=== PATIENT | female | born 1980 | race Caucasian/White ===

== ENCOUNTER 2016-05-17 04:02 | Emergency (ER) | payer OTHER ==
[~2016-05-17] VITALS: Ht 165.1 cm; Wt 107.6 kg
[~2016-05-17 04:02] MED LIST: AMPH10TA2 PO; CALCTAB5 PO; CHOL100010 PO; CLON0.5T3 PO; HYDR200T5 PO; MAGN400T6 PO; OMEG10007 PO; OXCA150T2 PO; OXYC1TAB3 PO; OXYC60TA8 PO; PANT20TA PO; POLY335040 PO; PREG1CAP34 PO; SENN1TAB77 PO; SPIR25TA PO; TRAZ100T29 PO; ZOLP10TA PO
[2016-05-17 04:11] VITALS: TEMP 37.2; Ht 165.1 cm; Wt 107.6 kg
[2016-05-17] MEDS ORDERED: SODIUM CHLORIDE 0.9% 1000ML 1,000 ML IV STA (04:24)
[2016-05-17] MEDS ORDERED: KETOROLAC TROMETHAMINE 30 MG/ML VIAL IV STA (04:24)
[2016-05-17] MEDS ORDERED: ALBUT/IPRATROP 3MG/0.5MG NEB 3 ML VIAL INH STA (04:24)
--- NOTE | 2016-05-17 04:39 | EMERGENCY ROOM VISIT NOTE ---
History Report prepared by Chester: Thomas Butler Under the Supervision of: Dr. Panchito Villar M.D. First contact with patient: 04:16 Chief Complaint: FLU LIKE SX Stated Complaint: FLU History of Present Illness The patient is a 35 year old female who presents to the Emergency Room with complaints of flu-like symptoms that began on Thursday of this week, 3 days prior to arrival. The patient is currently complaining of a "heaviness" in her lungs. She states that this symptom is worsening and hindering her sleep. She also complains of fevers, chills, sore throat, and body aches. She denies any history of asthma. 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 A total of 10 systems reviewed and were otherwise negative. Past Medical & Surgical Medical Problems: (1) Chronic pelvic pain of female (2) Depression (3) Fibromyalgia (4) Seizure disorder Family History Diabetes mellitus Social History Smoking Status: Never Smoker Marital Status: single Housing Status: lives with family Occupation Status: [employer] student Current/Historical Medications Scheduled Calcium Carbonate (Calcium 600), 600 MG PO BID Cholecalciferol (Vitamin D3), 1,000 UNIT PO DAILY Fish Oil ([place]-3), 1 CAP PO DAILY Hydroxychloroquine Sulfate (Plaquenil), 200 MG PO DAILY Magnesium Oxide (Mag-Ox), 400 MG PO DAILY Oxcarbazepine (Trileptal), 150 MG PO BID Oxymorphone Hcl (Opana Er (Crush Resistant), 30 MG PO BID Pantoprazole Sodium (Protonix), 40 MG PO DAILY Pregabalin (Lyrica), 300 MG PO BID Sennosides (Senokot), 8.6 MG PO DAILY Spironolactone (Aldactone), 50 MG PO BID Trazodone Hcl (Trazodone), 100 MG PO HS Scheduled PRN Amphetamine-Dextroamphetamine 10MG (Adderall 10MG), 10 MG PO DAILY PRN for ADHD Symptoms Clonazepam (Klonopin), 0.5 MG PO TID PRN for Anxiety Oxycodone Ir (Roxicodone Ir), 5 MG PO Q1-3 HOURS PRN for Severe Pain Polyethylene Glycol 3350 (Miralax), 17 GM PO DAILY PRN for Constipation Zolpidem Tartrate (Ambien), 10 MG PO HS PRN for Sleep Allergies Coded Allergies: Hydrocodone (Verified Allergy, Intermediate, HIVES, 05/17/16) Lamotrigine (Verified Allergy, Intermediate, ITCHING, 05/17/16) Penicillins (Verified Allergy, Mild, 05/17/16) Sulfa Antibiotics (Verified Allergy, Unknown, ?, 05/17/16) Ciprofloxacin (Verified Adverse Reaction, Mild, "STOMACH PAINS", 05/17/16) Physical Exam Vital Signs Date Time Temp Pulse Resp B/P Pulse Ox O2 Delivery O2 Flow Rate FiO2 05/17/16 06:20 78 18 108/60 98 05/17/16 04:11 37.2 94 18 113/77 97 Room Air Physical Exam GENERAL: Patient is anxious appearing and in mild distress. HEENT: Bilateral conjunctivitis right worse than left. No acute trauma, normocephalic atraumatic, mucous membranes are dry, no nasal congestion, no scleral icterus. NECK: No stridor, no adenopathy, no meningismus, trachea is midline. LUNGS: No dyspnea. Clear to auscultation and equal bilaterally. No wheeze, no rhonchi. HEART: Regular rate and rhythm. No murmurs, rubs, gallops appreciated. ABDOMEN: Soft, nontender, bowel sounds positive, no masses appreciated, no peritonitis. BACK: No midline tenderness, no CVA tenderness EXTREMITIES: Normal motion all extremities, no cyanosis, no edema. NEUROLOGIC: Alert and oriented, no acute motor or sensory deficits, no focal weakness, cranial nerves grossly intact. SKIN: No rash, no jaundice, no diaphoresis. Medical Decision & Procedures ER Provider Diagnostic Interpretation: X ray results are stated below per my interpretation: 2 view Chest: 1 view: No infiltrate, no effusion, normal cardiac border. Laboratory Results 05/17/16 04:30 Red Blood Count 4.86, Mean Corpuscular Volume 83.1, Mean Corpuscular Hemoglobin 28.0, Mean Corpuscular Hemoglobin Concent 33.7, Mean Platelet Volume 11.1, Neutrophils (%) (Auto) 63.1, Lymphocytes (%) (Auto) 24.9, Monocytes (%) (Auto) 8.8, Eosinophils (%) (Auto) 2.8, Basophils (%) (Auto) 0.3, Neutrophils # (Auto) 4.75, Lymphocytes # (Auto) 1.87, Monocytes # (Auto) 0.66, Eosinophils # (Auto) 0.21, Basophils # (Auto) 0.02 05/17/16 04:30 Test 05/17/16 04:30 White Blood Count 7.52 K/uL (4.8-10.8) Red Blood Count 4.86 M/uL (4.2-5.4) Hemoglobin 13.6 g/dL (12.0-16.0) Hematocrit 40.4 % (37-47) Mean Corpuscular Volume 83.1 fL (80-100) Mean Corpuscular Hemoglobin 28.0 pg (25-34) Mean Corpuscular Hemoglobin Concent 33.7 g/dl (32-36) Platelet Count 197 K/uL (130-400) Mean Platelet Volume 11.1 fL (7.4-10.4) Neutrophils (%) (Auto) 63.1 % Lymphocytes (%) (Auto) 24.9 % Monocytes (%) (Auto) 8.8 % Eosinophils (%) (Auto) 2.8 % Basophils (%) (Auto) 0.3 % Neutrophils # (Auto) 4.75 K/uL (1.4-6.5) Lymphocytes # (Auto) 1.87 K/uL (1.2-3.4) Monocytes # (Auto) 0.66 K/uL (0.11-0.59) Eosinophils # (Auto) 0.21 K/uL (0-0.5) Basophils # (Auto) 0.02 K/uL (0-0.2) RDW Standard Deviation 42.1 fL (36.4-46.3) RDW Coefficient of Variation 14.1 % (11.5-14.5) Immature Granulocyte % (Auto) 0.1 % Immature Granulocyte # (Auto) 0.01 K/uL (0.00-0.02) Anion Gap 9.0 mmol/L (3-11) Est Creatinine Clear Calc Drug Dose 124.3 ml/min Estimated GFR () 115.9 Estimated GFR (Non- 100.0 BUN/Creatinine Ratio 8.8 (10-20) Calcium Level 8.5 mg/dl (8.5-10.1) Laboratory results as reviewed by me. Medications Administered Medications (Trade) Dose Ordered Sig/Kang Route Start Time Stop Time Status Last Admin Dose Admin Sodium Chloride (Nss 1000ml) 1,000 ml @ 999 mls/hr Q1H1M STAT IV 05/17/16 04:24 05/17/16 05:24 DC 05/17/16 04:43 999 MLS/HR Ketorolac Tromethamine (Toradol Inj) 30 mg NOW STAT IV 05/17/16 04:24 05/17/16 04:26 DC 05/17/16 04:43 30 MG Albuterol/ Ipratropium (Duoneb) 3 ml NOW STAT INH 05/17/16 04:24 05/17/16 04:26 DC 05/17/16 04:43 3 ML Erythromycin (Erythromycin Oph Oint) 1 appln NOW ONCE OP 05/17/16 06:15 05/17/16 06:16 DC 05/17/16 06:20 1 APPLN ED Course 0419: The patient was evaluated in room B9. A complete history and physical exam was performed. 0424: Ordered Duoneb 3 mL INH, Toradol 30 mg IV, Sodium Chloride 1000 mL @ 999 mL/hr IV. 0615: Ordered Erythromycin 1 application 0628: I reevaluated the patient. I discussed results and discharge instructions : She verbalized understanding and agreement. The patient is ready for discharge. Medical Decision Differential: Viral, Pharyngitis, Cellulitis, Pneumonia, Influenza, Meningitis, Sepsis, Bacteremia, UTI/Pyelonephritis, Endocrine, Toxicologic, amongst other pathologies entertained. 35 yr old female arrives with body aches, runny nose, cough and conjunctivitis. Very much viral in nature. No fever here. Normal vitals. Clear lungs though asking for breathing treatment. Given toradol and IV fluids with improvement in symptoms. She is not having breathing difficulty by examination and without viral sign abnormality nor DVT risk factors and no breathing distress I do not feel that CT PE necessary at this time, as she clearly has URI symptomology. Notes it is normal that she gets body aches when ill. She has been ill several days at this point outside of Tamiflu window. Is on Methotrexate but this very much appears viral related and she is currently not septic. Labs are unremarkable. CXR clear. No indication for ABX at this time. Feels comfortable going home. With conjunctivitis and her allergy list will do erythromycin ointment. MD Drug Monitoring Program Search Results: patient reviewed within database, see additional documentation Drug Monitoring Findings: The [place] Prescription Drug Monitoring Program was reviewed regarding this patient, and showed monthly narcotic benzodiazepine and methamphetamine prescriptions. Impression Primary Impression: Upper respiratory infection Additional Impressions: Influenza-like symptoms Conjunctivitis, right eye Scribe Attestation The scribe's documentation has been prepared under my direction and personally reviewed by me in its entirety. I confirm that the note above accurately reflects all work, treatment, procedures, and medical decision making performed by me. Departure Information Dispostion Home / Self-Care Referrals Zac Hardy Jr,D.O. (PCP) Patient Instructions ED Flu, [facility] Additional Instructions Use eye ointment 2 to 3 times daily for next few days. Problem Qualifiers Primary Impression: Upper respiratory infection URI type: unspecified viral URI Qualified Codes: J06.9 - Acute upper respiratory infection, unspecified; B97.89 - Other viral agents as the cause of diseases classified elsewhere Additional Impressions: Conjunctivitis, right eye Conjunctivitis type: acute Acute conjunctivitis type: unspecified Qualified Codes: H10.31 - Unspecified acute conjunctivitis, right eye
[2016-05-17] MEDS ORDERED: OXYM1TAB26 PO (04:55)
[2016-05-17] MEDS ORDERED: POLY335019 PO (04:55)
[2016-05-17] MEDS ORDERED: CALC600T PO (04:56)
[2016-05-17] MEDS ORDERED: CHOL1000 PO (04:56)
[2016-05-17 04:58] LABS: BASO % 0.3 %; BASO ABS # 0.02 K/uL (0-0.2); COMPLETE YES; EOS % 2.8 %; HEMATOCRIT 40.4 % (37-47); IG% 0.1 %; LYMPH % 24.9 %; LYMPH ABS # 1.87 K/uL (1.2-3.4); MEAN CELL VOLUME 83.1 fL (80-100); MEAN CORPUSCULAR HGB CONC 33.7 g/dl (32-36); MEAN PLATELET VOLUME 11.1 fL (7.4-10.4); MONO % 8.8 %; NEUT % 63.1 %; PLATELET COUNT 197 K/uL (130-400); RED BLOOD COUNT 4.86 M/uL (4.2-5.4); WHITE BLOOD COUNT 7.52 K/uL (4.8-10.8)
[2016-05-17 05:20] LABS: BUN/CREATININE RATIO 8.8 (10-20); CALCIUM 8.5 mg/dl (8.5-10.1); CREATININE 0.77 mg/dl (0.60-1.20); POTASSIUM 3.7 mmol/L (3.5-5.1)
[2016-05-17] MEDS ORDERED: ERYTHROMYCIN OP OINT 5 MG/GM 3.5 GM TUBE OP ONE (06:15)
[2016-05-17 06:20] VITALS: BP 108/60; PULSE 78; O2SAT 98
--- NOTE | 2016-05-17 08:08 | DIAGNOSTIC IMAGING REPORT ---
SINGLE VIEW CHEST CLINICAL HISTORY: Cough. FINDINGS: An AP, portable, upright chest radiograph is compared to study dated 10/28/2015. The examination is mildly degraded by portable technique, large body habitus, and patient rotation. The cardiomediastinal silhouette is unremarkable. The lungs and pleural spaces are clear. No pneumothorax is seen. The bony thorax is grossly intact. IMPRESSION: No active disease in the chest. Electronically signed by: Chase Connors M.D. 05/17/2016 8:07 AM Dictated Date/Time: 05/17/2016 8:06 AM
[2016-09-25] MEDS ORDERED: MULT-506 PO (15:11)
[2016-09-25] MEDS ORDERED: ASCA500 (15:11)
[2016-09-25] MEDS ORDERED: LEVO-223 (15:11)
== END 2016-05-17 06:21 | disposition home or self-care (01) ==
LOC: C.EDB 04:02
DX: J06.9 Acute upper respiratory infection, unspecified (principal); H10.31 Unspecified acute conjunctivitis, right eye; R52 Pain, unspecified; R50.9 Fever, unspecified; F32.9 Major depressive disorder, single episode, unspecified; M79.7 Fibromyalgia; G40.909 Epilepsy, unspecified, not intractable, without status epilepticus; Z79.899 Other long term (current) drug therapy

== ENCOUNTER → 2016-06-24 | Outpatient (CLI) | payer OTHER ==
[~2016-06-24] MED LIST changes: +ASCA500; +CALC600T PO; -CALCTAB5 PO; +CHOL1000 PO; -CHOL100010 PO; +LEVO-223; +MULT-506 PO; -OXYC60TA8 PO; +OXYM1TAB26 PO; +POLY335019 PO; -POLY335040 PO
== END | disposition home or self-care (01) ==
LOC: C.LAB1850 13:45
PROVIDERS: ATTEND Obstetrics & Gynecology
DX: Z20.2 Contact with and (suspected) exposure to infections with a predominantly sexual mode of transmission (principal)

== ENCOUNTER → 2016-09-17 | Outpatient (CLI) | payer OTHER ==
[~2016-09-17] MED LIST changes: -PANT20TA PO; +PANT20TA2 PO
[2016-09-17 13:08] LABS: BASO % 0.3 %; BASO ABS # 0.03 K/uL (0-0.2); COMPLETE YES; EOS % 0.2 %; HEMATOCRIT 41.1 % (37-47); IG% 0.1 %; LYMPH % 15.7 %; LYMPH ABS # 1.47 K/uL (1.2-3.4); MEAN CORPUSCULAR HEMOGLOBIN 28.3 pg (25-34); MEAN CORPUSCULAR HGB CONC 34.1 g/dl (32-36); MEAN PLATELET VOLUME 10.8 fL (7.4-10.4); MONO % 5.1 %; NEUT % 78.6 %; PLATELET COUNT 228 K/uL (130-400); RED BLOOD COUNT 4.95 M/uL (4.2-5.4); WHITE BLOOD COUNT 9.38 K/uL (4.8-10.8)
[2016-09-17 14:18] LABS: BLOOD UREA NITROGEN 8 mg/dl (7-18); BUN/CREATININE RATIO 7.8 (10-20); CALCIUM 8.9 mg/dl (8.5-10.1); CARBON DIOXIDE 22 mmol/L (21-32); CHLORIDE 109 mmol/L (98-107); GLUCOSE 107 mg/dl (70-99); POTASSIUM 3.7 mmol/L (3.5-5.1); SODIUM 143 mmol/L (136-145)
[2016-09-17 14:21] LABS: ALKALINE PHOSPHATASE 50 U/L (45-117); ALT/SGPT 31 U/L (12-78); AST/SGOT 20 U/L (15-37)
== END | disposition home or self-care (01) ==
LOC: C.LAB 12:23
DX: R50.9 Fever, unspecified (principal)

== ENCOUNTER → 2016-10-30 | Outpatient (CLI) | payer OTHER ==
[~2016-10-30] MED LIST changes: +PANT20TA PO; -PANT20TA2 PO
[2016-10-30 16:43] LABS: BASO % 0.4 %; BASO ABS # 0.02 K/uL (0-0.2); COMPLETE YES; EOS % 4.2 %; HEMATOCRIT 42.8 % (37-47); LYMPH % 39.3 %; LYMPH ABS # 2.15 K/uL (1.2-3.4); MEAN CELL VOLUME 82.1 fL (80-100); MEAN CORPUSCULAR HEMOGLOBIN 26.9 pg (25-34); MEAN CORPUSCULAR HGB CONC 32.7 g/dl (32-36); MEAN PLATELET VOLUME 11.5 fL (7.4-10.4); MONO % 6.2 %; NEUT % 49.9 %; PLATELET COUNT 204 K/uL (130-400); RED BLOOD COUNT 5.21 M/uL (4.2-5.4); WHITE BLOOD COUNT 5.47 K/uL (4.8-10.8)
== END | disposition home or self-care (01) ==
LOC: C.LAB 15:00
PROVIDERS: ATTEND Physician Assistant Medical
DX: Z01.818 Encounter for other preprocedural examination (principal); R10.2 Pelvic and perineal pain; G89.29 Other chronic pain

== ENCOUNTER → 2017-05-12 | Outpatient (CLI) | payer OTHER ==
[~2017-05-12] MED LIST changes: -MAGN400T6 PO; -PANT20TA PO
[2017-05-12 19:55] LABS: INFLUENZA A PCR Neg for Influ A (NEG); INFLUENZA B PCR Neg for Influ B (NEG)
== END | disposition home or self-care (01) ==
LOC: C.LAB 17:24
DX: R50.9 Fever, unspecified (principal); R05 Cough; R53.81 Other malaise

== ENCOUNTER → 2017-06-02 | Outpatient (CLI) | payer OTHER ==
[2017-06-02 16:34] LABS: BASO % 0.3 %; BASO ABS # 0.02 K/uL (0-0.2); EOS % 1.5 %; EOS ABS # 0.11 K/uL (0-0.5); HEMATOCRIT 37.9 % (37-47); HEMOGLOBIN 12.8 g/dL (12.0-16.0); IG# 0.01 K/uL (0.00-0.02); LYMPH % 24.8 %; LYMPH ABS # 1.81 K/uL (1.2-3.4); MEAN CELL VOLUME 84.4 fL (80-100); MEAN CORPUSCULAR HEMOGLOBIN 28.5 pg (25-34); MEAN CORPUSCULAR HGB CONC 33.8 g/dl (32-36); MEAN PLATELET VOLUME 11.1 fL (7.4-10.4); MONO % 2.6 %; MONO ABS # 0.19 K/uL (0.11-0.59); NEUT % 70.7 %; NEUT ABS # 5.16 K/uL (1.4-6.5); PLATELET COUNT 182 K/uL (130-400); RED CELL DISTRIBUTION WIDTH CV 13.6 % (11.5-14.5); RED CELL DISTRIBUTION WIDTH SD 41.5 fL (36.4-46.3)
[2017-06-02 17:01] LABS: BLOOD UREA NITROGEN 6 mg/dl (7-18); CALCIUM 8.7 mg/dl (8.5-10.1); CARBON DIOXIDE 30 mmol/L (21-32); CREATININE 0.86 mg/dl (0.60-1.20); GLUCOSE 73 mg/dl (70-99); POTASSIUM 3.5 mmol/L (3.5-5.1); SODIUM 135 mmol/L (136-145)
[2017-06-02 17:12] LABS: TRANSFERRIN 239 mg/dl (200-360)
== END | disposition home or self-care (01) ==
LOC: C.LAB 15:15
DX: R10.9 Unspecified abdominal pain (principal); M19.90 Unspecified osteoarthritis, unspecified site; E55.9 Vitamin D deficiency, unspecified; E03.9 Hypothyroidism, unspecified; E61.1 Iron deficiency

== ENCOUNTER 2019-06-07 10:24 | Observation (INO) ==
--- NOTE | 2019-06-02 10:17 | Anesthesiology Consultation ---
Date of Service June 02, 2019 Assessment & Plan (1) Encounter for pre-operative examination: - Patient not seen at [facility] and no RN phone interview at time of chart review. Information obtained from available records. - Hx of glidescope intubation: resection pilonidal cyst: 02/08/19: Grade view 2, Glidescope#3, ETT 7.5 at [facility] - Check test AM DOS Chart Review Chart Review: Acceptable Risk for Surgery and Patient NOT seen in Pre Admission Testing History Surgery Operation Date: 06/07/19 14:05 Proposed Procedures p Laparoscopic Cholecystectomy with Cholangiogram, Possible Open Cholecystectomy with Cholangiogram - Chuck Ingram MD Height/Weight Height: 5 ft 5 in Weight: 115.7 kg Allergies Allergy/AdvReac Type Severity Reaction Status Date / Time lamotrigine Allergy Severe diffuse Verified 06/02/19 10:07 itching hydrocodone Allergy Intermediate hives Verified 06/02/19 10:07 morphine Allergy Intermediate itching Verified 05/30/19 10:54 Penicillins Allergy Intermediate diffuse Verified 06/02/19 10:07 (has tolerated amoxicillin) Cipro AdvReac Mild "STOMACH Verified 05/17/16 04:54 PAINS" ciprofloxacin AdvReac Mild stomach Verified 05/30/19 10:54 pain, nausea Medications Home Medications Medication Instructions Recorded Confirmed Last Taken Calcium 600 + D(3) 1 cap PO HS 02/07/19 05/30/19 02/07/19 22:00 ascorbic acid (vitamin C) [Vitamin 500 mg PO HS 02/07/19 05/30/19 02/07/19 22:00 C] cholecalciferol (vitamin D3) 6,000 unit PO HS 02/07/19 05/30/19 02/07/19 22:00 [Vitamin D3] doxepin 50 mg PO HS 02/07/19 05/30/19 02/07/19 22:00 lithium carbonate 900 mg PO HS 02/07/19 05/30/19 02/07/19 22:00 multivitamin 1 tab PO DAILY 02/07/19 05/30/19 02/07/19 22:00 pregabalin [Lyrica] 600 mg PO HS 02/07/19 05/30/19 02/07/19 22:00 spironolactone 25 mg tablet 100 mg PO HS tab 04/14/19 05/30/19 Unknown Past Medical History Medical History (Updated 06/02/19 @ 10:17 by Aster Lee) Anemia hx IV iron infusions Bartholin gland cyst Bipolar disorder Endometriosis Folliculitis History of seizure Morbid obesity Post traumatic stress disorder Rheumatoid arthritis Sleep apnea cpap Past Family History Family History Mother Family history of diabetes mellitus Grandmother (Maternal) Alzheimer disease Father Depression Family history of diabetes mellitus Aunt Cancer Denies family history of Ovarian cancer Breast cancer Colorectal cancer Past Surgical History Surgical History History of adenoidectomy History of colonoscopy History of detached retina repair bilateral History of esophagogastroduodenoscopy (EGD) History of laparoscopy x2 History of tonsillectomy S/P surgical removal of pilonidal cyst resection pilonidal cyst: 02/08/19: Grade view 2, Glidescope#3, ETT 7.5 at [facility] Past Anesthesia History Difficult Airway (resection pilonidal cyst: 02/08/19: Grade view 2, Glidescope#3, ETT 7.5 at [facility]) Social History Smoking Status: Current every day smoker tobacco type: e-cigarettes Smoking cigarettes per day: e-juice Hx Alcohol Use: No Hx Substance Use: No substance use type: does not use Testing Laboratory Results 05/27/19 WBC 12.07 (surgeon's office made aware) H/H 13.4/40.7 PLATELETS 300 SODIUM 139 POTASSIUM 3.4 CHLORIDE 108 CO2 24 BUN 7 CREATININE 0.96 GLUCOSE 98
[~2019-06-07 10:24] MED LIST changes: -AMPH10TA2 PO; -ASCA500; -CALC600T PO; -CHOL1000 PO; -CLON0.5T3 PO; -HYDR200T5 PO; -LEVO-223; +LR 15ML/HR IV SCH; -MULT-506 PO; -OMEG10007 PO; -OXCA150T2 PO; -OXYC1TAB3 PO; -OXYM1TAB26 PO; -POLY335019 PO; -PREG1CAP34 PO; -SENN1TAB77 PO; -SPIR25TA PO; -TRAZ100T29 PO; -ZOLP10TA PO
[2019-06-07] MEDS ORDERED: fentaNYL citrate 100 MCG/2 ML VIAL ONE ×3 (11:13→13:49)
[2019-06-07] MEDS ORDERED: MIDAZOLAM HCL 1 MG/ML 2ML VIAL ONE (11:13)
--- NOTE | 2019-06-07 11:27 | History & Physical Bridge Note ---
Date of Service June 07, 2019 History & Physical Bridge Note I have examined the patient, reviewed the History & Physical and in the interval since the performance of the History & Physical I have noted the following changes of clinical significance: no changes noted mother at bedside all questions answered
[2019-06-07] MEDS ORDERED: FLUMAZENIL 0.1 MG/1 ML 10 ML VIAL IV PRN (11:33)
[2019-06-07] MEDS ORDERED: ePHEDrine sulfate 50 MG/ML AMP IV PRN (11:33)
[2019-06-07] MEDS ORDERED: LABETALOL HCL IV 5 MG/ML 20ML IV PRN (11:33)
[2019-06-07] MEDS ORDERED: ONDANSETRON INJ 2 MG/ML 2 ML VIAL IV PRN ×2 (11:33→13:42)
[2019-06-07] MEDS ORDERED: NALOXONE HCL 0.4 MG/1 ML VIAL/CARP IV PRN (11:33)
[2019-06-07] MEDS ORDERED: ATROPINE SULFATE 0.1 MG/ML 10ML SYR IV PRN (11:33)
[2019-06-07] MEDS ORDERED: PROMETHAZINE HCL 12.5 MG in SODIUM CHLORIDE 0.9% 50 ML IV PRN (11:33)
[2019-06-07 11:34] LABS: Pregnancy Test, Serum Negative (Negative)
[2019-06-07] MEDS ORDERED: CONRAY 60% 50 ML VIAL ONE (11:34)
[2019-06-07] MEDS ORDERED: LIDOCAINE/EPINEPHRINE 1% 20 ML VIAL ONE (11:34)
[2019-06-07] MEDS ORDERED: ACETAMINOPHEN 1000 MG/100 ML IV IV ONE (11:45)
[2019-06-07] MEDS ORDERED: ROCURONIUM BROMIDE 10 MG/ML 5 ML VIAL ONE ×2 (12:22→13:42)
[2019-06-07] MEDS ORDERED: NEOSTIGMINE METHYLSULFATE 5 MG/5 ML SYR ONE (12:22)
[2019-06-07] MEDS ORDERED: DEXAMETHASONE SOD INJ 4 MG/ML VIAL ONE (12:22)
[2019-06-07] MEDS ORDERED: LIDOCAINE HCL 2% 2 ML VIAL/AMP(20MG/ML) INFIL ONE (12:22)
[2019-06-07] MEDS ORDERED: GLYCOPYRROLATE 0.2 MG/ML VIAL ONE (12:22)
[2019-06-07] MEDS ORDERED: PROPOFOL IV EMULSION 10 MG/ML 20 ML VIAL IV ONE (12:22)
[2019-06-07] MEDS ORDERED: ONDANSETRON INJ 2 MG/ML 2 ML VIAL ONE (12:22)
[2019-06-07] MEDS ORDERED: HYDROmorphone INJ 0.5 MG/0.5 ML SYR IV PRN ×2 (13:42→14:51)
[2019-06-07] MEDS ORDERED: OXYCODONE/ACETAMINOPHEN 5mg/325mg TAB PO PRN (13:42)
--- NOTE | 2019-06-07 13:42 | Post Operative Brief Note ---
PG Immediate Post Op with CF Date of Surgery June 07, 2019 Pre & Post Diagnosis Operation Date: 06/07/19 11:50 Pre-Op Diagnosis: Cholelithiasis Post-Op Diagnosis: Cholelithiasis I identified the patient and participated in the time-out.: Yes Procedure Operation Date: 06/07/19 11:50 Actual Procedures p Laparoscopic Cholecystectomy(Not Applicable) - Chuck Ingram MD Surgeon Chuck Ingram MD Hydro Operator b jeanne carrillo Estimated Blood Loss 15 Findings Consistent with Post-Op Diagnosis Specimens Specimen Description: Permanent: A. gallbladder and contents Drains Christian-Vernon Drain (19fr )
[2019-06-07] MEDS ORDERED: SODIUM CHLORIDE 0.9% 1000ML 1,000 ML IV SCH (13:45)
--- NOTE | 2019-06-07 14:14 | Operative Report ---
PG Post Operative Report Pre & Post Diagnosis Operation Date: 06/07/19 11:50 Pre-Op Diagnosis: Cholelithiasis Post-Op Diagnosis: Cholelithiasis I identified the patient and participated in the time-out.: Yes Procedure Operation Date: 06/07/19 11:50 Actual Procedures p Laparoscopic Cholecystectomy(Not Applicable) - Chuck Ingram MD The patient was brought into the operating theater general endotracheal anesthesia the abdomen was prepped Betadine solution properly draped a timeout was had patient was identified made a small incision supraumbilically initials passage of the Veress needle was unsuccessful getting it actual plane to insufflate therefore we made a another incision about 2 inches above this in the midline there we were able to enter peritoneal cavity aspirated with Veress needle followed by CO2 followed by point of entry with a 5 mm trocar visualizing the camera and no injuries identified on direct visualization 5 mm epigastric 2 5 mm ports were placed the patient was seen in the left lateral position right reverse Trendelenburg and identify the gallbladder which did not see it was free of any adhesions in the uppermost portion at the liver bed but further down remains with significant amount of omental adhesions including duodenal adhesions towards the area which were plane of dissection was taken close to the gallbladder were freed up the duodenum and all the way went down to the neck of the gallbladder. This point another gallbladder appeared quite tense was afraid that this was going to inadvertently place a hole in it therefore I tried aspirating it through an aspirating needle in the fundus and they really nothing would come out and is it turned out that the patient had a complete fill gallbladder with caviar type of bilirubinate stones. At this point we dissected out neck to the gallbladder found a very small structure which I thought initially may have been an artery but actually turned out to be the cystic duct this was so probably 1-1/2 mm at most in diameter they were able to clip but divided proximally and distally therefore cholangiogram was not obtained. We then identified the anterior posterior branch of the cystic artery which we clipped the gallbladder was elevated to take out as much is posterior peritoneum leaving it intact as possible I was significant he just there were identified as far as scarred down no true plane was able to identified except for a few places but as we were elevating the gallbladder up a small opening the gallbladder was made and immediately as I suspected a ton of small bilirubin stones came through there was no real way to stop this finally we were able to suck out most of them we then were able to place a 5 mm Endopouch onto the gallbladder the area there without an opening then try to control as much of this is possible we change the epigastric port site to 11 mm then continued elevating the gallbladder and freed it from the liver bed. We then placed in an Endopouch along with the previously made Endopouch and taken out intact through the epigastric port which we enlarged first by placing 11 mm and even further. Needle inserted we had a ton of stones into the subhepatic suprahepatic area that we suctioned out copiously we try to get the stone extractor with this was slightly bigger than a 5 mm were unable to really get a lot of purchase on this profoundly I started using 10 mm backslash scope up the stones down underneath the liver in her right gutter but it time we were down we probably had 99% of it extracted and removed but there was some that I could not possibly create a mall. I elected to drain the area with a Sherif drain taken out medially taken out intentionally to the right upper quadrant port attaching skin edge with 2-0 silk. This point the trocar the camera was placed in the right upper quadrant port site to visualize the initial entering and there was no injury identified. Individual ports were taken out of direct visualization we closed the umbilical port with the Vicryl suture above the epigastric port we closed [id number] Vicryl x2 and Monocryl for that in the subcostal ports dressing was applied procedure was tolerated well by the patient estimated blood loss approximately 15 cc Bharati carrillo was present the whole time and help with retraction exposure and camera work and wound closure Surgeon Chuck Ingram MD Position Classification Specialist mona carrillo Estimated Blood Loss 15 Findings Consistent with Post-Op Diagnosis Specimens gallbladder and contents Description of Procedure merda I attest to the content of the Intraoperative Record and any orders documented therein. Any exceptions are noted below.
[2019-06-07] MEDS: fentaNYL citrate 100 MCG/2 ML VIAL IV PRN ×4 (14:17→14:37)
--- NOTE | 2019-06-07 15:11 | Anesthesiology Progress Note ---
Date of Service June 07, 2019 Anesthesia Post Procedure Vital Signs Vital Signs: Temp Pulse Pulse Resp BP BP Pulse Ox 06/07/19 15:00 81 22 134/82 93 06/07/19 14:50 87 20 153/73 H 94 06/07/19 14:40 90 24 147/87 H 95 06/07/19 14:30 87 24 144/89 H 94 06/07/19 14:20 87 22 131/87 94 06/07/19 14:10 36.1 C L 98 H 22 140/80 93 06/07/19 10:52 37 C 93 H 18 132/84 96 Pain Intensity Right Abdomen: Pain Intensity: 4 Transfer of Care Handoff Completed per policy Notes Mental Status: alert / awake / arousable Patient Amnestic to Procedure: Yes Nausea / Vomiting: adequately controlled Pain: adequately controlled Airway Patency, RR, SpO2: stable & adequate BP & HR: stable & adequate Hydration State: stable & adequate Anesthetic Complications: no major complications apparent
[2019-06-07] MEDS ORDERED: GABAPENTIN 300 MG CAP PO PRN (17:47)
[2019-06-07] MEDS ORDERED: METHOCARBAMOL 500 MG TABLET PO PRN (17:47)
[2019-06-07] MEDS: LACTATED RINGER'S 1,000 ML IV SCH (18:03)
[2019-06-07] MEDS: HYDROmorphone INJ 1 MG/ML SYRINGE IV PRN (18:03)
[2019-06-07] MEDS ORDERED: PREGABALIN 150 MG CAP PO SCH (21:00)
[2019-06-07] MEDS ORDERED: OXcarbazepine 150 MG TABLET PO SCH (21:00)
[2019-06-07] MEDS ORDERED: DOXEPIN HCL 50 MG CAPSULE PO SCH (21:00)
[2019-06-07] MEDS ORDERED: SPIRONOLACTONE 25 MG TAB PO SCH (21:00)
[2019-06-07] MEDS ORDERED: LITHIUM CARBONATE SLOW REL 300 MG TAB PO SCH (21:00)
[2019-06-07] MEDS ORDERED: FOLIC ACID 1 MG TAB PO SCH (21:00)
[2019-06-07] MEDS: OXYCODONE/ACETAMINOPHEN 5mg/325mg TAB PO PRN (22:01)
[2019-06-08] MEDS: OXYCODONE/ACETAMINOPHEN 5mg/325mg TAB PO PRN (03:25)
[2019-06-08] MEDS: LACTATED RINGER'S 1,000 ML IV SCH (05:41)
--- NOTE | 2019-06-08 07:40 | Surgery Progress Note ---
Date of Service June 08, 2019 Assessment & Plan (1) Gallbladder sludge: POD 1 lap yodit Sherif drain removed increase diet, activity seen with Dr. Ingram d/c later today Subjective RUQ pain ? from drain, no nausea Physical Exam Gastrointestinal (Abdomen): Inspection/Auscultation: + abdominal surgical incision (clean, dry) and + abdominal surgical drain present (serosang) Percussion/Palpation: abdomen soft Results & Data Vital Signs (Past 12 Hours) Vital Signs Temp Pulse Pulse Resp BP Pulse Ox 06/08/19 07:05 37.3 C 81 19 106/64 94 06/08/19 03:30 37.1 C 97 H 18 115/70 94 06/08/19 03:00 97 H 18 94 06/07/19 23:11 104 H 18 94 06/07/19 22:52 37.1 C 100 H 16 123/70 95 06/07/19 20:45 36.9 C 94 H 18 113/70 94 PG Care Time/CCT Total # of Minutes Spent Total Time Spent with Patient: Total time spent is greater than 50% in coordination of care (as documented) at patient's floor/unit and/or counseling patient: Coding Level of Care Code None Diagnoses Gallbladder sludge K82.8
[2019-06-08] MEDS ORDERED: MULTIVITAMIN TAB PO SCH (09:00)
[2019-06-08] MEDS: HYDROmorphone INJ 1 MG/ML SYRINGE IV PRN (10:18)
[2019-06-08] MEDS ORDERED: KETOROLAC 30 MG/ML VIAL IV STA (12:54)
[2019-06-08 15:13] VITALS: PULSE 79; TEMP 98.2; O2SAT 93
[2019-06-08 15:34] VITALS: BP 125/88
--- NOTE | 2019-06-12 14:58 | Discharge Summary ---
Date of Service June 12, 2019 Principal Diagnosis Symptomatic cholelithoasis Discharge Exam Gastrointestinal (Abdomen) Inspection/Auscultation: + abdominal surgical incision (clean, dry); abdomen not distended Percussion/Palpation: abdomen soft Discharge Data Allergies Allergy/AdvReac Type Severity Reaction Status Date / Time lamotrigine Allergy Severe diffuse Verified 06/07/19 10:48 itching hydrocodone Allergy Intermediate hives Verified 06/07/19 10:48 morphine Allergy Intermediate itching Verified 06/07/19 10:48 Penicillins Allergy Intermediate diffuse Verified 06/07/19 10:48 (has tolerated amoxicillin) Cipro AdvReac Mild "STOMACH Verified 05/17/16 04:54 PAINS" ciprofloxacin AdvReac Mild stomach Verified 06/07/19 10:48 pain, nausea Procedures Performed Operation Date: 06/07/19 11:50 Actual Procedures p Laparoscopic Cholecystectomy(Not Applicable) - Chuck Ingram MD Hospital Course (1) Gallbladder sludge: 38 y/o female was taken to the operating room for elective cholecystectomy. The procedure was well tolerated however she was not making progress towards discharge while recovering in [facility]. She was admitted for overnight observation. In the morning she was tolerating diet although her pain control was marginal. Sherif drain was removed and she was given a dose of Toradol. Later that afternoon she was tolerating oral analgesics and was stable for discharge home. Total Time Total Time Spent Total Time Spent (In Minutes): 10 Discharge Plan Discharge Items Patient Disposition: Home - Self-Care Reason For Visit: Cholelithiasis Discharge Diagnosis: laparoscopic cholecystectomy Activity: Per Instructions section Lifting: No more than 10 pounds Bathing Comment: may shower; no soaking in tubs Exercise/Sports: Wait until after follow-up appointment Driving/Machine Use: do not resume driving while taking narcotics for pain Non-emergency contact: Surgeon Call non-emergency contact if: you have any medication questions, your symptoms worsen, your pain is not controlled, your pain is worsening, you have a fever, your temperature is above 101.5, your wound has increased redness, your wound has increased drainage and your wound pain has increased Follow-up/Referrals: Chuck Ingram MD [Surgeon] - 06/15/19 2:00 pm (Please call to schedule follow up in clinic within 1 week) Zac Hardy Jr, DO [Primary Care Provider] - (follow up already scheduled with surgeon) Diet: Regular Addtl Attending Provider Instructions: Pending Studies at Discharge: Yes Studies:: surgical pathology Stand-Alone Forms: Anesthesia/Sedation, Adult, [facility], Opioid Pain Management Medications and DC Order Prescriptions: New oxycodone-acetaminophen [Percocet] 5-325 mg tablet 1 - 2 tab PO Q4H PRN (Reason: pain, initial therapy, max 6 daily) Qty: 15 RF: 0 Continued multivitamin Tablet 1 tab PO DAILY RF: 0 doxepin 50 mg Capsule 100 mg PO HS RF: 0 lithium carbonate 300 mg Tablet Extended Release 900 mg PO HS RF: 0 ascorbic acid (vitamin C) [Vitamin C] 500 mg Tablet 500 mg PO HS RF: 0 Calcium 600 + D(3) 600 mg calcium- 200 unit Capsule 1 cap PO HS RF: 0 pregabalin [Lyrica] 300 mg Capsule 600 mg PO HS RF: 0 cholecalciferol (vitamin D3) [Vitamin D3] 2,000 unit Capsule 6,000 unit PO HS RF: 0 spironolactone 25 mg tablet 50 mg PO HS RF: 0 oxcarbazepine [Trileptal] 150 mg Tablet 150 mg PO HS RF: 0 methocarbamol 500 mg Tablet 500 - 1,000 mg PO Q6H PRN (Reason: Muscle Spasm) RF: 0 desog-e.estradiol/e.estradiol [Kariva (28)] 0.15-0.02 mgx21 /0.01 mg x 5 Tablet 1 tab PO HS RF: 0 methotrexate sodium 2.5 mg Tablet 15 mg PO WK RF: 0 gabapentin 300 mg Capsule 300 mg PO HS PRN (Reason: pain/insomnia) RF: 0 folic acid 1 mg Tablet 1 mg PO HS RF: 0 Discharge Orders: Discharge Order (Routine); Ordered 06/08/19 Ordered By: Lakisha Goff/Other Patient Handouts: Surgery Prevent DVT After, Cholecystectomy Laparoscopic Dc, Tube [facility] Drainage Care Admission Data Admit Date/Time: 06/07/19 16:50 Attending Provider: Chuck Ingram Admit Provider: Chuck Ingram Primary Care Provider: Zac Hardy Jr Other Interventions: Discharge Summary Assessment (RN) Last Done: 06/08/19 15:33 DC Date/Time DO NOT enter until pt leaves facility: 06/08/19 16:02 Coding Level of Care Code D/C Day Management <30 mins Diagnoses Gallbladder sludge K82.8
== END 2019-06-08 16:02 | disposition home or self-care (01) ==
LOC: 3W 10:24 → ASU 10:24